=== PATIENT | male | born 1970 | race Asian ===

== ENCOUNTER 2016-06-02 10:42 | Emergency (ER) | payer OTHER ==
[~2016-06-02] VITALS: Ht 172.7 cm; Wt 77.3 kg
[2016-06-02 11:34] VITALS: BP 132/90
== END 2016-06-02 15:18 | disposition home or self-care (01) ==
LOC: EMS 10:44
DX: S60.031A Contusion of right middle finger without damage to nail, initial encounter (principal); X58.XXXA Exposure to other specified factors, initial encounter; Y93.89 Activity, other specified; Y92.89 Other specified places as the place of occurrence of the external cause; Y99.8 Other external cause status
CPT/HCPCS: 99284